=== PATIENT | female | born 1955 ===

== ENCOUNTER 2019-02-14 06:45 | Day surgery (SDC) | payer OTHER ==
[2019-02-14 07:11] VITALS: BMI 35.4
[2019-02-14 07:31] VITALS: PULSE 59; RESP 19; TEMP 97.7; O2SAT 97
--- NOTE | 2019-02-14 08:57 | CP.SDSHP ---
<Harry Pichardo - Last Filed: 02/14/19 08:55> Same Day Surgery [facility] - History Proposed Procedure: EGD. Colonscopy Pre-Op Diagnosis: chronic heart burn. screening for colon cancer - Previous Medical/Surgical History Cardiac: Hypertension Endocrine/Metabolic: Diabetes Comments: obesity. vertigo. diverticulosis - Allergies Allergies: Allergies No Known Allergies Allergy (Verified 02/14/19 07:09) - Current Medications Current Medications: ASA' lisinopril/hctz meclizine D2 - Physical Exam General Appearance: no acute distress Vital Signs: Vital Signs 02/14/19 07:12 Temperature 97.7 F Pulse Rate 59 L Respiratory 19 Rate Blood Pressure 118/49 L O2 Sat by Pulse 97 Oximetry Mental Status: Alert & Oriented x3 Neuro: WNL Heart: WNL Lungs: WNL GI: WNL - Impression Impression: chronic heartburn. screening for colonoscopy - Date & Time Date: 02/14/19 Time: 08:30 Short Stay Discharge - Short Stay Discharge Admitting Diagnosis/Reason for Visit: HEARTBURN,ENCOUNTER FOR SCREENING FOR MALIGNANT NE Disposition: HOME/ ROUTINE <Alexy Pruitt - Last Filed: 02/14/19 09:01> Same Day Surgery H & P - Allergies Allergies: Allergies No Known Allergies Allergy (Verified 02/14/19 07:09) - Physical Exam Vital Signs: Vital Signs 02/14/19 07:12 Temperature 97.7 F Pulse Rate 59 L Respiratory 19 Rate Blood Pressure 118/49 L O2 Sat by Pulse 97 Oximetry Attending/Attestation - Attestation I have personally seen and examined this patient.: Yes I have fully participated in the care of the patient.: Yes I have reviewed all pertinent clinical information: Yes Notes (Text): 02/14/19 09:00 agree with above. EGD to evaluate chronic heartburn and screening colonoscopy last done >10 years ago.
[2019-02-14] MEDS ORDERED: Propofol 10 mg/ml Inj (20 ML) ONE ×3 (09:01→09:34)
[2019-02-14] MEDS ORDERED: Pantoprazole 40 mg EC Tab PO STA (09:10)
[2019-02-14 10:17] VITALS: BP 126/64
== END 2019-02-14 10:37 | disposition home or self-care (01) ==
LOC: C.ENDO 06:45
PROVIDERS: ATTEND Internal Medicine Gastroenterology
DX: R12 Heartburn (principal); Z12.11 Encounter for screening for malignant neoplasm of colon; K57.10 Diverticulosis of small intestine without perforation or abscess without bleeding; K21.9 Gastro-esophageal reflux disease without esophagitis; K20.9 Esophagitis, unspecified
CPT/HCPCS: 43239; 45378; 88305; J2001; J2704